=== PATIENT | male | born 1940 | race Caucasian/White ===

== ENCOUNTER 2018-09-18 16:40 | Observation (INO) | payer OTHER ==
--- OUTSIDE RECORDS SUMMARY | 2018-09-18 16:42 | XMS REPORT ---
:1940 Author Organization [facility] Address [address] [place] [address] Dr. Shanks [address] [place] [address] Care Team Providers Name Role Phone Unavailable Unavailable Unavailable Problems This patient has no known problems. Allergies, Adverse Reactions, Alerts This patient has no known allergies or adverse reactions. Medications This patient has no known medications. Results Test Description Test Time Test Comments Text Results Atomic Results Result Comments SURG 2017-10-12 RUN DATE: 16:23:00 10/12/17 [facility] - LAB *LIVE* PAGE 1 RUN TIME: 1623 Specimen Inquiry RUN USER: INTERFACE PATIENT: BALBINA LOPEZ LOC: L[facility]U U #: [id number] AGE/SX: 77/M ROOM: RE10/05/17REG DR: Dickson Brower MD : 38 BED: DIS: STATUS: DEP [facility] [place] TLOC: SPEC #: [id number] RECD: 10/08/17 STATUS: TJ GALLEGOS # : [id number] EVELIA: 10/05/[address]: Dickson Brower MD ENTERED: 10/08/17 SP TYPE: SURG OTHR DR: Oz Bonds MD ORDERED: SURG PATH LVL 4 [place]IES [place]: [place] [id number] [facility] [address] [place], [place] [address] [email or web address] Oz Bonds MD [address] [place] [address] HISTOLOGY : TISSUE ID BLK PCS SHYLA LEV PROCEDURE DISPOSITION ____ __ _ ___ ___ URINARY BLADDER A 1 1 PROCEDURES: SURG PATH LVL 4 (10/08/17) TISSUES: A. 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 Received in formalin are four glez fibrous tissue fragments, 0.4 - 0.5 cm. The entire specimen submitted as A. ba/nr Grossing performed at [facility], [facility], [address], CONTINUED ON NEXT PAGE RUN DATE: 10/12/17 [facility] - LAB *LIVE* PAGE 2 RUN TIME: 1623 Specimen Inquiry RUN USER: INTERFACE SPEC #: [id number] PATIENT: BALBINA LOPEZ #[id number] (Continued) GROSS DESCRIPTION (Continued) [place], [place] [address]. [employer]: Elvis Mandel M.D. MICROSCOPIC DESCRIPTION Urinary bladder tumor. Sections demonstrate urothelium with a papillary appearance. The papillary urothelium demonstrates areas of thickening. The majority of urothelium demonstrates a relatively organized transition with urothelium at the surface. Focal areas of mild atypia are identified. No evidence of invasion is seen. 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 Signed SIGNATURE ON FILE Miguel Moon [id number] END OF REPORT
--- OUTSIDE RECORDS SUMMARY | 2018-09-18 16:42 | XMS REPORT | Clinical Summary ---
:1940 Author Organization [facility] Address [address] [place] [address] Care Team Providers Name Role Phone Asked, No Pcp Primary Care Provider Unavailable Allergies Not on File Medications Not on file Active Problems Not on file Social History Tobacco Use Types Packs/Day Years Used Date Never Assessed Sex Assigned at Date Recorded Not on file Job Start Date Occupation Industry Not on file Not on file Not on file Travel History Travel Start Travel End No recent travel history available. Last Filed Vital Signs Not on file Plan of Treatment Health Maintenance Due Date Last Done Comments SHINGLES VACCINES (#1) 1989 65+ PNEUMOCOCCAL VACCINE (1 of 2 - PCV13) 02/12/2004 INFLUENZA VACCINE 09/26/2018 Results Not on fileafter 09/17/2017 Insurance Payer Benefit Plan / Subscriber ID Effective Dates Phone Address Type Group AETNA AETNA [facility] xxxxxxxxx 2000-[facility] Indemnity INDEMNITY t MEDICARE MEDICARE PART A AND xxxxxxxxxx 2004-[place], [place] Medicare B nt Advance Directives Patient has advance care planning documents on file. For more information, please contact:[facility] [place] [address]
[2018-09-18 17:38] LABS: Absolute Lymphocytes (CBC) 1.9 K/uL (0.7-4.9); Basophils % 0.6 % (0-1.3); Hematocrit 43.1 % (39.6-49.0); Lymphocytes % 18.1 % (15.3-44.8); MPV 8.9 fL (7.6-11.3); Protime INR 0.98; RBC Red Blood Cell Count 4.88 M/uL (4.33-5.43)
--- NOTE | 2018-09-18 17:47 | RAD REPORT ---
EXAM DESCRIPTION: RAD - Chest Single View - 09/18/2018 5:32 pm CLINICAL HISTORY: dizziness Chest pain. COMPARISON: CHEST PA AND LAT 2 VIEW dated 12/15/2010; CHEST SINGLE VIEW dated 02/25/2008; CHEST SING LE VIEW dated 01/08/2008; CHEST SINGLE VIEW dated 01/07/2008 FINDINGS: Portable technique limits examination quality. The lungs are grossly clear. The heart is normal in size. No displaced fractures. IMPRESSION: No acute intrathoracic process suspected.
--- NOTE | 2018-09-18 17:54 | RAD REPORT ---
EXAM DESCRIPTION: CT - CTHCSPWOC - 09/18/2018 5:45 pm CLINICAL HISTORY: Trauma, head and neck injury. fall, neck pain COMPARISON: Head Brain Wo Cont dated 11/26/2016 TECHNIQUE: Axial 5 mm thick images of the head were obtained. Axial 2 mm thick images of the cervical spine were obtained with sagittal and coronal reconstruction images generated and reviewed. All CT scans are performed using dose optimization technique as appropriate and may include automated exposure control or mA/KV adjustment according to patient size. FINDINGS: CT HEAD WITHOUT CONTRAST: No acute hemorrhage, hydrocephalus or extra-axial collection is identified.Moderate global atrophy.No areas of brain edema or midline shift. The paranasal sinuses and mastoids are clear.The calvarium is intact. CT CERVICAL SPINE WITHOUT CONTRAST: No fracture or subluxation.Moderate lower cervical degenerative changes are present.No prevertebral s oft tissues swelling is identified. IMPRESSION: No acute intracranial or cervical spine findings. Moderate lowers cervical degenerative changes.
[2018-09-18 17:55] LABS: ALT/SGPT 19 U/L (12-78); AST/SGOT 13 U/L (15-37); Albumin 3.5 g/dL (3.4-5.0); Alkaline Phosphatase 66 U/L (45-117); BUN Blood Urea Nitrogen 39 mg/dL (7-18); Bicarbonate 28 mmol/L (21-32); Bilirubin Direct 0.1 mg/dL (0-0.2); Bilirubin Total 0.5 mg/dL (0.2-1.0); Glucose Level 242 mg/dL (74-106); Magnesium 2.6 mg/dL (1.8-2.4); NT PRO-BNP 131 pg/mL (<450); Potassium 5.2 mmol/L (3.5-5.1); Protein, Total 7.6 g/dL (6.4-8.2); Sodium Level 135 mmol/L (136-145); Troponin (Emerg Dept Use Only) < 0.02 ng/mL (0.0-0.045)
[2018-09-18] MEDS ORDERED: NA CHLORIDE 0.9% 500 ML ONE (18:32)
--- NOTE | 2018-09-18 18:44 | ER ---
Nurse's Notes [facility] Name: Beni Walker Age: 78 yrs Sex: Male : 1940 Arrival Date: 09/18/2018 Time: 16:41 Bed 5 Private MD: Diagnosis: Dehydration;Fall on same level from slipping, tripping and stumbling Presentation: 09/18 16:42 Presenting complaint: EMS states: family called EMS, noticed pt is not feeling good and hj refused to get off bed today, pt told them, he feels dizzy when getting up, pt started new meds gabapentin 2 days ago; per report, pt fell yesterday in the bathroom, denies hitting head, complaints of lower back pain; BGL- 247; T-97.8; BP- 147/66;. Transition of care: patient was not received from another setting of care. Onset of symptoms was September 18, 2018. Risk Assessment: Do you want to hurt yourself or someone else? Patient reports no desire to harm self or others. Initial Sepsis Screen: Does the patient meet any 2 criteria? No. Patient's initial sepsis screen is negative. Does the patient have a suspected source of infection? No. Patient's initial sepsis screen is negative. Care prior to arrival: None. 16:42 Method Of Arrival: EMS: [facility] 16:42 Acuity: IVAN 3 hj Triage Assessment: 16:47 General: Appears in no apparent distress. uncomfortable, Behavior is calm, cooperative, hj appropriate for age. Pain: Complains of pain in back. Historical: - Allergies: 16:47 Iodine; hj - Home Meds: 16:47 levothyroxine 125 mcg tab 1 tab once daily [Active]; aspirin 325 mg Oral TbEC 1 tab hj once daily [Active]; carvedilol 3.125 mg Oral tab 1 tab 2 times per day [Active]; citalopram 20 mg tab 1 tab once daily [Active]; terazosin 10 mg Oral cap 1 cap once daily [Active]; clopidogrel 75 mg Oral tab 1 tab once daily [Active]; Crestor 10 mg Oral tab 1 tab once daily [Active]; finasteride 5 mg Oral tab 1 tab once daily [Active]; isosorbide mononitrate 30 mg Oral Tb24 1 tab once daily [Active]; Ocuvite 833-01-7-150 hy-jdmu-dk-mg Oral cap [Active]; omeprazole 40 mg Oral cpDR 1 cap once daily [Active]; Fish Oil Oral [Active]; - PMHx: 16:47 Bladder cancer; Cataracts; Myocardial infarction; TIA; hj - PSHx: 16:47 None; hj - Immunization history:: Adult Immunizations up to date. - Social history:: Smoking status: Patient/guardian denies using tobacco, Patient/guardian denies using alcohol. - Ebola Screening: : Patient negative for fever greater than or equal to 101.5 degrees Fahrenheit, and additional compatible Ebola Virus Disease symptoms Patient denies exposure to infectious person Patient denies travel to an Ebola-affected area in the 21 days before illness onset. Screenin:47 Abuse screen: Denies threats or abuse. Denies injuries from another. Nutritional hj screening: No deficits noted. Tuberculosis screening: No symptoms or risk factors identified. Fall Risk None identified. Assessment: 16:49 General: Appears in no apparent distress. uncomfortable, Behavior is calm, cooperative, hj appropriate for age. Pain: Complains of pain in back. Neuro: Level of Consciousness is awake, alert, obeys commands, Oriented to person, place, time, situation, Appropriate for age. Cardiovascular: Denies chest pain, Capillary refill < 3 seconds Patient's skin is warm and dry. Respiratory: Airway is patent Respiratory effort is even, unlabored, Respiratory pattern is regular, symmetrical. GI: : No signs and/or symptoms were reported regarding the genitourinary system. EENT: No signs and/or symptoms were reported regarding the EENT system. Derm: No signs and/or symptoms reported regarding the dermatologic system. Musculoskeletal: No signs and/or symptoms reported regarding the musculoskeletal system. 17:11 Reassessment: provider in room;. hj 17:44 Reassessment: Patient and/or family updated on plan of care and expected duration. Pain hj level reassessed. Patient is alert, oriented x 3, equal unlabored respirations, skin warm/dry/pink. pt to CT:. 18:48 Reassessment: Patient and/or family updated on plan of care and expected duration. Pain hj level reassessed. Patient is alert, oriented x 3, equal unlabored respirations, skin warm/dry/pink. awaiting room placement;. 19:00 Reassessment: [id number]: Yuval Barnes - [phone]. jd3 19:10 General: Appears in no apparent distress. comfortable, Behavior is calm, cooperative, jd3 appropriate for age. Pain: Denies pain. Neuro: Level of Consciousness is awake, alert, obeys commands, Oriented to person, place, time, situation, Reports weakness general. Cardiovascular: Denies chest pain, shortness of breath, Capillary refill < 3 seconds Patient's skin is warm and dry. Respiratory: Airway is patent Respiratory effort is even, unlabored, Respiratory pattern is regular, symmetrical. GI: No signs and/or symptoms were reported involving the gastrointestinal system. : No signs and/or symptoms were reported regarding the genitourinary system. EENT: No signs and/or symptoms were reported regarding the EENT system. Derm: Skin is intact, Skin is dry, Skin is normal, Skin temperature is warm. Musculoskeletal: Circulation, motion, and sensation intact. Range of motion: intact in all extremities. 20:28 Reassessment: Patient appears in no apparent distress at this time. Patient and/or jd3 family updated on plan of care and expected duration. Pain level reassessed. Patient is alert, oriented x 3, equal unlabored respirations, skin warm/dry/pink. awaiting room assignment. 21:22 Reassessment: Patient appears in no apparent distress at this time. Patient and/or jd3 family updated on plan of care and expected duration. Pain level reassessed. Patient is alert, oriented x 3, equal unlabored respirations, skin warm/dry/pink. report given to Marleny IBRAHIM. Vital Signs: 16:48 BP 138 / 69; Pulse 95; Resp 18; Temp 97.8(O); Pulse Ox 99% on R/A; Weight 81.65 kg; Height 5 ft. 8 in. (172.72 cm); Pain 2/10; 17:54 BP 139 / 65; Pulse 90; Resp 18; Pulse Ox 97% on R/A; hj 18:11 BP 147 / 89 Supine; Pulse 88; Resp 18; Pulse Ox 100% ; hj 18:11 BP 111 / 64 Sitting; Pulse 99; Resp 18; Pulse Ox 99% on R/A; hj 18:11 BP 92 / 47 Standing; Pulse 94; Resp 18; Pulse Ox 99% on R/A; hj 19:11 BP 139 / 61; Pulse 89; Resp 17 S; Pulse Ox 100% on R/A; Pain 0/10; jd3 20:28 BP 135 / 69; Pulse 85; Resp 16 S; Pulse Ox 97% on R/A; Pain 0/10; jd3 16:48 Body Mass Index 27.37 (81.65 kg, 172.72 cm) ED Course: 16:41 Patient arrived in ED. hj 16:45 Triage completed. hj 16:48 Arm band placed on right wrist. hj 16:48 Patient has correct armband on for positive identification. Bed in low position. Call light in reach. Side rails up X 1. 16:50 Andrés Valerio, [place] is Primary Nurse. hj 16:53 EKG done, by electronics technician apprentice. reviewed by Bill Hector MD. 3 17:02 Giovani Kim PA is PHCP. cp 17:02 Bill Hector MD is Attending Physician. cp 17:20 Initial lab(s) drawn, by dc, sent to lab. Inserted saline lock: 22 gauge in left hj antecubital area, using aseptic technique. Blood collected. 17:31 X-ray completed. Portable x-ray completed in exam room. Patient tolerated procedure az well. 17:33 XRAY Chest (1 view) In Process Unspecified. EDMS 17:44 CT completed. Patient tolerated procedure well. Patient moved to CT. Patient moved back mi from CT. 17:45 CT Head C Spine In Process Unspecified. EDMS 18:42 Oz Fuller MD is Hospitalizing Provider. cp 18:49 Urine Microscopic Only Sent. hj 21:23 No provider procedures requiring assistance completed. Patient admitted, IV remains in jd3 place. Administered Medications: 18:04 Drug: NS 0.9% 500 ml Route: IV; Rate: bolus; Site: left antecubital; hj 18:48 Follow up: IV Status: Completed infusion; IV Intake: 500ml 18:05 CANCELLED (Physician Discretion): Insulin Regular Human 5 units IVP once cp Intake: 18:48 IV: 500ml; Total: 500ml. Outcome: 18:43 Decision to Hospitalize by Provider. cp 21:23 Admitted to Med/surg accompanied by nurse, via wheelchair, room 225, with chart, Report jd3 called to Marleny IBRAHIM 21:23 Condition: stable 21:23 Instructed on the need for admit, Demonstrated understanding of instructions. 21:24 Patient left the ED. gloria Signatures: Dispatcher [employer] EDMS Andrés Valerio RN RN hj Giovani Kim PA PA cp Jordan, Nathan nj Davies, Jonathon, RN RN jd3 Mica Pandya 3 Juana Davidson
--- NOTE | 2018-09-18 18:45 | EDPHYS ---
Physician Documentation [facility] Name: Beni Walker Age: 78 yrs Sex: Male : 1940 Arrival Date: 09/18/2018 Time: 16:41 Bed 5 Private MD: ED Physician Bill Hector HPI: 09/18 17:20 This 78 yrs old Male presents to ER via EMS with complaints of General cp Weakness. 17:20 Details of fall: The patient fell from an upright position, while walking. Onset: The cp symptoms/episode began/occurred last night, after getting up to use restroom. Associated injuries: The patient sustained no obvious injury. Patient reports continued general weakness. Historical: - Allergies: 16:47 Iodine; hj - Home Meds: 16:47 levothyroxine 125 mcg tab 1 tab once daily [Active]; aspirin 325 mg Oral TbEC 1 tab hj once daily [Active]; carvedilol 3.125 mg Oral tab 1 tab 2 times per day [Active]; citalopram 20 mg tab 1 tab once daily [Active]; terazosin 10 mg Oral cap 1 cap once daily [Active]; clopidogrel 75 mg Oral tab 1 tab once daily [Active]; Crestor 10 mg Oral tab 1 tab once daily [Active]; finasteride 5 mg Oral tab 1 tab once daily [Active]; isosorbide mononitrate 30 mg Oral Tb24 1 tab once daily [Active]; Ocuvite 222-99-1-150 sk-vwzg-us-mg Oral cap [Active]; omeprazole 40 mg Oral cpDR 1 cap once daily [Active]; Fish Oil Oral [Active]; - PMHx: 16:47 Bladder cancer; Cataracts; Myocardial infarction; TIA; hj - PSHx: 16:47 None; hj - Immunization history:: Adult Immunizations up to date. - Social history:: Smoking status: Patient/guardian denies using tobacco, Patient/guardian denies using alcohol. - Ebola Screening: : Patient negative for fever greater than or equal to 101.5 degrees Fahrenheit, and additional compatible Ebola Virus Disease symptoms Patient denies exposure to infectious person Patient denies travel to an Ebola-affected area in the 21 days before illness onset. ROS: 17:30 Constitutional: Negative for body aches, chills, fever, poor PO intake. cp 17:30 Eyes: Negative for injury, pain, redness, and discharge. cp 17:30 ENT: Negative for drainage from ear(s), ear pain, sore throat, difficulty swallowing, difficulty handling secretions. 17:30 Cardiovascular: Negative for chest pain, edema, palpitations. 17:30 Respiratory: Negative for cough, shortness of breath, wheezing. 17:30 Abdomen/GI: Negative for abdominal pain, nausea, vomiting, and diarrhea, constipation, anorexia, black/tarry stool, rectal bleeding. 17:30 Back: Negative for pain at rest, pain with movement. 17:30 : Negative for urinary symptoms, flank pain. 17:30 Skin: Negative for cellulitis, rash. 17:30 Neuro: Positive for dizziness, weakness, Negative for altered mental status, headache, loss of consciousness, syncope. 17:30 All other systems are negative. Exam: 17:35 Constitutional: The patient appears in no acute distress, alert, awake, cp non-diaphoretic, non-toxic, well developed, well nourished. 17:35 Head/Face: Normocephalic, atraumatic. cp 17:35 Eyes: Periorbital structures: appear normal, Pupils: equal, round, and reactive to light and accomodation, Extraocular movements: intact throughout, Conjunctiva: normal, no exudate, no injection, Sclera: no appreciated abnormality, Lids and lashes: appear normal, bilaterally. 17:35 ENT: External ear(s): are unremarkable, Ear canal(s): are normal, clear, TM's: bulging, is not appreciated, bilaterally, dullness, bilaterally, erythema, is not appreciated, bilaterally, Nose: is normal, Mouth: Lips: dry, Oral mucosa: pink and intact, Posterior pharynx: Airway: no evidence of obstruction, patent, Tonsils: are normal in appearance. 17:35 Neck: ROM/movement: is normal, is supple, without pain, no range of motions limitations, no nuchal rigidity. 17:35 Chest/axilla: Inspection: normal, Palpation: is normal, no crepitus, no tenderness. 17:35 Cardiovascular: Rate: normal, Rhythm: regular, Edema: is not appreciated, JVD: is not appreciated. 17:35 Respiratory: the patient does not display signs of respiratory distress, Respirations: normal, no use of accessory muscles, no retractions, no splinting, no tachypnea, labored breathing, is not present, Breath sounds: are clear throughout, no decreased breath sounds, no stridor, no wheezing. 17:35 Abdomen/GI: Inspection: abdomen appears normal, Bowel sounds: active, all quadrants, Palpation: abdomen is soft and non-tender, in all quadrants. 17:35 Back: vertebral tenderness, is not appreciated, Straight leg raises: of both lower extremities does not illicit pain. 17:35 Skin: no rash present. 17:35 Neuro: Orientation: to person, place \T\ time. Mentation: is normal, Cerebellar function: Romberg testing is negative, Motor: moves all fours, general weakness w/o focal deficits, Sensation: no obvious gross deficits. Vital Signs: 16:48 BP 138 / 69; Pulse 95; Resp 18; Temp 97.8(O); Pulse Ox 99% on R/A; Weight 81.65 kg; hj Height 5 ft. 8 in. (172.72 cm); Pain 2/10; 17:54 BP 139 / 65; Pulse 90; Resp 18; Pulse Ox 97% on R/A; hj 18:11 BP 147 / 89 Supine; Pulse 88; Resp 18; Pulse Ox 100% ; hj 18:11 BP 111 / 64 Sitting; Pulse 99; Resp 18; Pulse Ox 99% on R/A; hj 18:11 BP 92 / 47 Standing; Pulse 94; Resp 18; Pulse Ox 99% on R/A; hj 19:11 BP 139 / 61; Pulse 89; Resp 17 S; Pulse Ox 100% on R/A; Pain 0/10; jd3 20:28 BP 135 / 69; Pulse 85; Resp 16 S; Pulse Ox 97% on R/A; Pain 0/10; jd3 16:48 Body Mass Index 27.37 (81.65 kg, 172.72 cm) MDM: 17:02 Patient medically screened. cp 18:00 Differential diagnosis: closed head injury, contusion, fracture, dehydration, cardiac cp arrythmia. 18:41 Data reviewed: vital signs, nurses notes, lab test result(s), EKG, radiologic studies, cp CT scan. Physician consultation: Oz Fuller MD was called at 18:35, was contacted at 18:35, regarding admission, to the medical/surgical unit. patient's condition. 09/18 17:13 Order name: Basic Metabolic Panel; Complete Time: 18:02 cp 09/18 18:02 Interpretation: Normal except: NA 135; K 5.2; GLUC 242; BUN 39; CRE 1.90; GFR 34. cp / 17:13 Order name: CBC with Diff; Complete Time: 17:59 cp 09/18 17:13 Order name: LFT's; Complete Time: 18:02 cp 09/18 17:13 Order name: Magnesium; Complete Time: 18:02 cp 09/18 17:13 Order name: NT PRO-BNP; Complete Time: 18:02 cp 09/18 17:13 Order name: PT-INR; Complete Time: 17:59 cp 09/18 17:13 Order name: CT Head C Spine; Complete Time: 17:59 cp 09/18 17:13 Order name: Troponin (emerg Dept Use Only); Complete Time: 18:02 cp 09/18 17:13 Order name: XRAY Chest (1 view); Complete Time: 17:59 cp 09/18 17:14 Order name: Urine Microscopic Only; Complete Time: 18:58 cp / 18:57 Interpretation: Normal except: URBC 5-10. cp 09/18 18:33 Order name: Urine Dipstick--Ancillary (enter results); Complete Time: 18:58 bd 09/18 19:46 Order name: Troponin I [facility] 09/18 19:46 Order name: Troponin I [facility] 09/18 17:13 Order name: C-Collar; Complete Time: 17:54 cp 09/18 17:13 Order name: EKG; Complete Time: 17:16 cp 09/18 17:13 Order name: Cardiac monitoring; Complete Time: 17:15 cp 09/18 17:13 Order name: EKG - Nurse/Tech; Complete Time: 17:16 cp 09/18 17:13 Order name: IV Saline Lock; Complete Time: 17:41 cp 09/18 17:13 Order name: Labs collected and sent; Complete Time: 17:41 cp 09/18 17:13 Order name: O2 Per Protocol; Complete Time: 17:16 cp 09/18 17:13 Order name: O2 Sat Monitoring; Complete Time: 17:16 cp 09/18 17:14 Order name: Urine Dipstick-Ancillary (obtain specimen); Complete Time: 18:49 09/18 18:02 Order name: Orthostatics; Complete Time: 18:04 09/18 19:46 Order name: CONS Physician Consult ED[facility] 09/18 19:46 Order name: Consistent Carb (ADA) [address] [facility] 09/18 19:46 Order name: EKG Electrocardiogram [facility] 09/18 19:46 Order name: EKG Electrocardiogram EDNC Administered Medications: 18:04 Drug: NS 0.9% 500 ml Route: IV; Rate: bolus; Site: left antecubital; hj 18:48 Follow up: IV Status: Completed infusion; IV Intake: 500ml 18:05 CANCELLED (Physician Discretion): Insulin Regular Human 5 units IVP once cp Disposition: 09/18/18 18:43 Hospitalization ordered by Oz Fuller for Observation. Preliminary diagnosis are Dehydration, Fall on same level from slipping, tripping and stumbling. - Bed requested for Telemetry/MedSurg (observation). - Status is Observation. jd3 - Condition is Stable. - Problem is new. - Symptoms have improved. UTI on Admission? No Addendum: 09/20/2018 19:12 Co-signature as Attending Physician, Bill Hector MD. r n Signatures: Dispatcher [employer] [facility] Bill Hector MD MD rn Joaquin, Henry, RN RN hj Page, Corey, PA PA cp Davies, Jonathon, RN RN jTiffani Estevez ar5 Corrections: (The following items were deleted from the chart) 09/18 18:05 18:04 Insulin Regular Human 5 units IVP once ordered. cp cp 20:41 18:43 Hospitalization Ordered by Oz Fuller MD for Observation. Preliminary diagnosis ar5 is Dehydration; Fall on same level from slipping, tripping and stumbling. Bed requested for Telemetry/MedSurg (observation). Status is Observation. Condition is Stable. Problem is new. Symptoms have improved. UTI on Admission? No. cp 21:24 20:41 09/18/2018 18:43 Hospitalization Ordered by Oz Fuller MD for Observation. jd3 Preliminary diagnosis is Dehydration; Fall on same level from slipping, tripping and stumbling. Bed requested for Telemetry/MedSurg (observation). Status is Observation. Condition is Stable. Problem is new. Symptoms have improved. UTI on Admission? No. ar5
[2018-09-18 18:46] LABS: Urine Blood 2+ (NEG); Urine Glucose TRACE (NEG); Urine Protein 1+ (NEG); Urine Specific Gravity 1.025 (1.005-1.030); Urine pH 5.5 (5.0-7.0)
[2018-09-18 18:49] LABS: Urine Mucus 1+ /HPF (NONE SEEN)
[2018-09-18 18:50] LABS: Urine Bacteria <20 /HPF (NONE SEEN); Urine Culture Reflex Order NOT NEEDED
[2018-09-18] MEDS ORDERED: ACETAMINOPHEN 500 MG TAB PO PRN (19:37)
[2018-09-18] MEDS ORDERED: ONDANSETRON 4 MG/2 ML VIAL IV PRN (19:37)
[2018-09-18] MEDS ORDERED: D50W 25 GM/50 ML SYRINGE IV PRN (19:40)
[2018-09-18] MEDS ORDERED: GLUCAGON 1 MG/VIAL IM PRN (19:40)
[2018-09-18] MEDS: INSULIN -REGULAR HUMAN 50 UNIT/0.5 ML ML SQ SCH (23:07)
[2018-09-18] MEDS: NA CHLORIDE 0.9% 1,000 ML IV SCH (23:07)
[2018-09-19] MEDS: NA CHLORIDE 0.9% 1,000 ML IV SCH ×2 (05:25→08:53)
[2018-09-19 05:51] LABS: Absolute Lymphocytes (CBC) 2.9 K/uL (0.7-4.9); Basophils % 0.7 % (0-1.3); Hematocrit 38.6 % (39.6-49.0); Lymphocytes % 28.6 % (15.3-44.8)
[2018-09-19 06:06] LABS: Potassium 4.5 mmol/L (3.5-5.1)
[2018-09-19] MEDS: INSULIN -REGULAR HUMAN 50 UNIT/0.5 ML ML SQ SCH ×3 (08:53→17:30)
[2018-09-19] MEDS ORDERED: ASPIRIN EC 81 MG TAB PO SCH (09:00)
--- NOTE | 2018-09-19 11:23 | EKG ---
Test Date: 2018-09-18 Test Time: 16:44:54 Grinder Chipper: BON MEASUREMENT RESULTS: Intervals: Rate: 93 WV: 140 QRSD: 92 QT: 354 QTc: 440 [place]: P: 64 WV: 140 QRS: 15 T: 85 INTERPRETIVE STATEMENTS: Normal sinus rhythm Possible Inferior infarct, age undetermined Abnormal ECG Compared to ECG 11/26/2016 11:11:16 No significant changes Electronically Signed On 09-19-18 11:21:17 CDT by Sawyer Turner
--- NOTE | 2018-09-19 17:31 | RAD REPORT ---
EXAM DESCRIPTION: US - Renal Ultrasound-Complete - 09/19/2018 4:47 pm CLINICAL HISTORY: Abnormal renal function. Abdominal pain COMPARISON: 2013 FINDINGS: The right kidney measures 10 cm with an increased echotexture. The left kidney measures 11 cm with an increased echotexture. . 3.7 centimeters cyst Hydronephrosis is not seen. No gross abnormality of bladder is seen IMPRESSION: Increased renal echotexture consistent with parenchymal disease 3.7 centimeter left renal cyst
--- NOTE | 2018-09-19 19:48 | CON ---
Date of Consultation: 09/19/2018 Reason For Consultation: Elevated BUN and creatinine, fluid management. History Of Present Illness: This is a pleasant 78-year-old gentleman with significant past medical h istory of diabetes since 2009, complicated with neuropathy, no retinopathy, hypertension, hyperlipide caesar, coronary artery disease, status post PTCA multiple time, osteoarthritis, not taking any nonstero id. The patient according to the patient was in his regular state of health. Apparently, he develop ed shingles on the face and because of the pain, was started on gabapentin. The patient went home, a pparently at home felt dizzy and fell down, loss of conscious without any nausea, any vomiting, any c hest pain, no palpitation. For that reason, he reported to the emergency room. Upon arrival to the emergency room, patient found to have elevation in BUN and creatinine. For that reason, we have been consulted. On the presentation, he had a hemoglobin of 14.6 and had a creatinine elevated of 1.9. The patient was started on IV hydration. Creatinine gradually trending down to 1.4. The patient den ied any nausea, any vomiting. No chest pain. Patient denied any IV contrast. No exposure for any n onsteroidal. Past Medical History: As above includin.Diabetes, complicated with neuropathy, no retinopathy. 2.Hypertension. 3.Coronary artery disease, status post PTCA. 4.Osteoarthritis. Past Surgical History: PTCA. Allergies: IODINE. Home Medications: Isosorbide, vitamin C, omeprazole, atorvastatin, Plavix, insulin, citalopram, aspi rin, and levothyroxine. Current Medications: Terazosin, IV fluid, pantoprazole, levothyroxine, isosorbide, Plavix, citalopra m, and carvedilol. Social History: Denies smoking. Denies drinking. Denies drug abuse. Review of Systems: Head and Neck: No red eye. No ear pain. GI: Has nausea. No vomiting. : No polyuria, no dysuria, no hematuria. FOOD TESTER: Not applicable. Respiratory: No shortness of breath. Cardiovascular: Has syncope. Neuro: Has neuropathy. Musculoskeletal: Had neck pain. Endocrine: No polydipsia. Skin: No rash. Physical Examination: Vital Signs: When I saw the patient, blood pressure 148/70, pulse of 71, afebrile. The patient's bl ood pressure upon presentation was low down to the 90. Chest: Clear to auscultation. Heart: S1, S2. Regular. Abdomen: Midline hernia. Extremities: No edema. Laboratory Data: Sodium 137, potassium 4.5, bicarb 29, BUN 34, creatinine 1.4, calcium 8.7. WBC 10. 1, H and H 13.4/38.6, platelets 196. Reviewing the record back in 2017, creatinine 1.3 with GFR of 5 0. Assessment And Plan: 1.Acute kidney injury, mostly secondary to prerenal and low blood pressure, superimposed with dehydr ation. I agree with current IV fluid. We will send for renal ultrasound, protein and creatinine, an d we will follow up the patient. 2.Hypertension, not controlled. I am going to go ahead and increase his carvedilol to 6.25, and we will follow up the patient. 3.Syncope, mostly secondary to dehydration, recovered. CT of the head was negative. We will follow up with primary. 4.Diabetes, as by primary. Case discussed with the patient, verbalized understanding and discussed with the staff, agreed on the plan. CATALINA Voice ID: [id number] Report ID: [id number]
[2018-09-19] MEDS ORDERED: DHA PO SCH (21:00)
[2018-09-19] MEDS ORDERED: FISH OIL PO SCH (21:00)
[2018-09-19] MEDS ORDERED: EPA PO SCH (21:00)
[2018-09-19] MEDS ORDERED: CARVEDILOL 3.125 MG TAB PO SCH (21:00)
[2018-09-19] MEDS ORDERED: CARVEDILOL 6.25 MG TAB PO SCH (21:00)
[2018-09-19] MEDS ORDERED: ISOSORBIDE MONO 10 MG TAB PO SCH (21:00)
--- NOTE | 2018-09-20 01:03 | HP ---
Date of Admission: 09/18/2018 Chief Complaint: Dehydration. History Of Present Illness: A 78-year-old male was brought to the emergency room because of poor eat ing and following a fall at home. The patient had evaluation done in the emergency room. He was fou nd to have worsening of his chronic renal insufficiency with evidence of dehydration. The patient is admitted for observation. There is no evidence of head injury or evidence of acute coronary syndrom e. Past Medical History: Extensive includes a history of type 2 diabetes, hypertension, coronary artery disease, history of hypothyroidism, gastroesophageal reflux disease. Family History: Noncontributory. Personal History: He is allergic to iodine. Past Surgical History: Positive for cataract, bladder cancer. Review of Systems: No fevers, chills, rigors. Physical Examination: General: Revealed a 78-year-old male, alert for his age. Vital Signs: Normal. HEENT: Negative. Neck: Supple. JVD negative. Chest: Occasional wheezes, otherwise negative. Heart: Occasional irregularity, otherwise negative. Abdomen: Soft. Extremities: No edema. Laboratory Data: White count normal. Chem profile; admission BUN 39, creatinine 1.9, potassium 5.2. Troponin normal. CT scan of the neck and head, no evidence of neck injury or head injury. Assessment: 1.Astsl-ov-hsqspjy renal failure. 2.Dehydration causing above. 3.Type 2 diabetes. 4.Known coronary artery disease. 5.Hypothyroidism. 6.Recent fall at home. 7.Gastroesophageal reflux disease. Plan: The patient to receive IV fluids. His Chem profile has improved. The patient, however, wants to go home. I spoke to the son regarding his care and his decision. The patient will be discharged and advised to be followed in the office on Sunday. MICHAEL/PAOLA Voice ID: [id number]
[2018-09-20] MEDS ORDERED: LEVOTHYROXINE SOD 0.125 MG TAB PO SCH (06:00)
[2018-09-20] MEDS ORDERED: PANTOPRAZOLE 40MG TABLET PO SCH (07:30)
[2018-09-20] MEDS ORDERED: LIXISENATIDE SQ SCH (09:00)
[2018-09-20] MEDS ORDERED: TERAZOSIN HCL 5 MG CAP PO SCH (09:00)
[2018-09-20] MEDS ORDERED: INSULIN GLARGINE SQ SCH (09:00)
[2018-09-20] MEDS ORDERED: HOME MED 1 EA UNK (Omeprazole [Prilosec] 40 MG) PO SCH (09:00)
[2018-09-20] MEDS ORDERED: CITALOPRAM 10 MG TABLET PO SCH (09:00)
[2018-09-20] MEDS ORDERED: CLOPIDOGREL 75 MG TABLET PO SCH (09:00)
[2018-09-20] MEDS ORDERED: [UNRECOGNIZED DRUG - OTHER] SQ SCH (09:00)
[2018-09-20] MEDS ORDERED: TERAZOSIN HCL 10 MG PO SCH (09:00)
[2018-09-20] MEDS ORDERED: ROSUVASTATIN 10 MG TAB PO SCH (09:00)
[2018-09-20] MEDS ORDERED: ASPIRIN 325 MG TAB PO SCH (09:00)
== END 2018-09-19 19:52 | disposition home or self-care (01) ==
LOC: ER 16:40 → ERHOLD 20:24 → 2ND 21:10
PROVIDERS: ADMIT Internal Medicine; ATTEND Internal Medicine
DX: E86.0 Dehydration (principal); N17.9 Acute kidney failure, unspecified; E11.40 Type 2 diabetes mellitus with diabetic neuropathy, unspecified; E03.9 Hypothyroidism, unspecified; I10 Essential (primary) hypertension; R55 Syncope and collapse; W01.0XXA Fall on same level from slipping, tripping and stumbling without subsequent striking against object, initial encounter; R94.31 Abnormal electrocardiogram [ECG] [EKG]; N28.1 Cyst of kidney, acquired; I25.10 Atherosclerotic heart disease of native coronary artery without angina pectoris; I25.2 Old myocardial infarction; K21.9 Gastro-esophageal reflux disease without esophagitis; M19.90 Unspecified osteoarthritis, unspecified site; Z79.82 Long term (current) use of aspirin; Z79.02 Long term (current) use of antithrombotics/antiplatelets; Z79.4 Long term (current) use of insulin; Z79.899 Other long term (current) drug therapy; Z85.51 Personal history of malignant neoplasm of bladder; Z86.73 Personal history of transient ischemic attack (TIA), and cerebral infarction without residual deficits
CPT/HCPCS: 93005; 85025 ×2; 80048 ×2; 36415; 83735; 85610; 82962 ×4; 80076; 84484 ×3; 83970; 83880; 70450; 72125; 71045; 76770; 96360; 99285; J7030 ×2; G0378 ×2; 81003; 81015